=== PATIENT | male | born 1980 | race Caucasian/White ===

== ENCOUNTER 2016-07-31 08:39 | Emergency (ER) | payer OTHER ==
[2016-07-31 08:47] VITALS: BP 129/73
[2016-07-31] MEDS ORDERED: Aspirin Low Dose CHEW TAB* 81 MG PO ONE (09:39)
--- NOTE | 2016-07-31 09:44 | UC ---
Armando Rodriguez Benjamin, scribed for Papa Alexander MD on 07/31/16 at 0935 . Syncope/New Syncope HPI - HPI Summary HPI Summary: 35yo male who had a syncopal episode after a high intensity workout yesterday for a couple minutes. Took BP after the episode which was initially 85/54. First repeat was 99/60 then second repeat was back to pts baseline. Pt also felt woozy at night and reports left chest pressure that radiates to the arm, neck, and back yesterday night that is still present. Pt also reports mild SOB and states had been fasting for the past two days. Pt admits that he is under lots of stress lately. - History Of Current Complaint Chief Complaint: UCGeneralIllness Stated Complaint: FAINTED, PRESSURE/TINGLING Time Seen by Provider: 07/31/16 09:24 Hx Obtained From: Patient Onset/Duration: Sudden Onset, Lasting Minutes, Resolved Activity At Onset: Exertion - after a workout Timing: Intermittent Episode Lasting - minutes Context: Unwitnessed Associated Head Trauma: No Aggravating Factor(s): Nothing Alleviating Factor(s): Nothing Associated Signs And Symptoms: Positive: Chest Pain - left chest pressure, Shortness Of Breath - Allergies/Home Medications Allergies/Adverse Reactions: Allergies Allergy/AdvReac Type Severity Reaction Status Date / Time Amoxicillin Allergy Rash Verified 07/19/13 07:52 Dust Allergy Sneezing Uncoded 07/19/13 07:53 PMH/Surg Hx/FS Hx/Imm Hx GI/ History: Other - GI problems, not yet diagnosed. Other GI/ History: . - Surgical History Surgical History: Yes Surgery Procedure, Year, and Place: Scoliosis surgery at age 15 - Family History Known Family History: Positive: Cardiac Disease - lots of CADs in family - Social History Occupation: Employed Full-time Lives: With Family Alcohol Use: None Substance Use Type: None Smoking Status (MU): Never Smoked Tobacco - Immunization History Most Recent Influenza Vaccination: Season Review of Systems Constitutional: Negative Skin: Negative Eyes: Negative ENT: Negative Respiratory: Shortness Of Breath Cardiovascular: Chest Pain Gastrointestinal: Negative Genitourinary: Negative Motor: Negative Neurovascular: Negative Musculoskeletal: Negative Neurological: Other - syncopal episode Psychological: Other - stressed All Other Systems Reviewed And Are Negative: Yes Physical Exam Triage Information Reviewed: Yes Appearance: Well-Appearing, No Pain Distress, Obese Vital Signs: Initial Vital Signs Temp 98.4 F 07/31/16 08:42 Pulse 70 07/31/16 08:42 Resp 18 07/31/16 08:42 BP 129/73 07/31/16 08:42 Pulse Ox 100 07/31/16 08:42 Vital Signs Reviewed: Yes Eye Exam: Normal ENT: Positive: Normal ENT inspection, Pharynx normal, TMs normal Neck: Positive: Supple, Nontender Respiratory: Positive: Chest non-tender, Lungs clear, Normal breath sounds, No respiratory distress Bowel Sounds: Positive: Present Musculoskeletal: Positive: Strength Intact, ROM Intact Neurological: Positive: Alert, Muscle Tone Normal Psychological: Positive: Age Appropriate Behavior Skin Exam: Normal Skin: Negative: rashes Diagnostics - EKG Cardiac Rate: NL - 67bpm Cardiac Rhythm: Sinus: Normal - EKG taken at 0847. Ectopy: None Syncope Course/Dx - Course Course Of Treatment: Reviewed medication lists. TRANSFER TO [facility] [place] ED STABLE. - Differential Dx/Diagnosis Provider Diagnoses: SYNCOPE AND CHEST PAIN. - Physician Notification/Consults Discussed Patient Care With: Discussed with Sonja FAUSTIN (ED) for transfer to the ED. Discharge - Discharge Plan Condition: Stable Disposition: TRANS HIGHER LVL OF CARE FAC Referrals: No Primary Care Phys,NOPCP [Primary Care Provider] - The documentation as recorded by the Armando sosa Benjamin accurately reflects the service I personally performed and the decisions made by me, Papa Alexander MD.
== END 2016-07-31 10:13 | disposition short-term general hospital (02) ==
LOC: UCEAST 08:39
DX: R55 Syncope and collapse (principal); R07.9 Chest pain, unspecified; E66.9 Obesity, unspecified; Z88.3 Allergy status to other anti-infective agents
CPT/HCPCS: 93005; 99203; A9270-GY; G0463

== ENCOUNTER 2016-07-31 10:26 | Emergency (ER) | payer OTHER ==
[2016-07-31] MEDS ORDERED: Aspirin Low Dose CHEW TAB* 81 MG PO ONE (11:31)
[2016-07-31 11:50] LABS: Hematocrit 42 % (42-52); Mean Corpuscular HGB Conc 34 g/dl (31-36); Mean Corpuscular Hemoglobin 30 pg (27-31); Mean Corpuscular Volume 90 fL (80-94); Mean Platelet Volume 8 um3 (7.4-10.4); Red Blood Count 4.64 10^6/ul (4.0-5.4); Red Cell Distribution Width 13 % (10.5-15); White Blood Count 8.2 10^3/ul (3.5-10.8)
[2016-07-31 11:56] LABS: BUN/Creatinine Ratio 19.5 (8-20); EGFR African American 147.9 (>60); Globulin 3.3 g/dL (2-4); Potassium 4.1 mmol/L (3.5-5.0); Total Bilirubin 2.8 mg/dL (0.2-1.0); Total Protein 8.3 g/dL (6.4-8.9)
[2016-07-31 12:07] LABS: TSH (Thyroid Stimulating Horm) 2.24 mcIU/mL (0.34-5.60)
--- NOTE | 2016-07-31 12:35 | RAD ---
Indication: Chest pain, syncope. 2 views of the chest including dual energy PA views are reviewed. No prior study is available for comparison. No mediastinal shift is noted. Heart is of normal size without evidence of pericardial effusion. Lung bernabe demonstrate no pleural fluid, pneumonia or pneumothorax. IMPRESSION: NO ACTIVE CARDIOPULMONARY DISEASE IS NOTED.
--- NOTE | 2016-07-31 13:30 | ED ---
Jack Rodriguez Salem, scribed for Balwinder Romeo MD on 07/31/16 at 1205 . HPI Chest Pain - HPI Summary HPI Summary: Patient is a 35 y/o M who presents to the ED per EMS from the [facility] with CP since this morning. He states that he was doing a high intensity interval exercise last night (as he has been doing for 2 years now) when he felt lightheaded and had a near syncope/syncope episode. He also states that he had been fasting for two days prior to yesterday out of a desire to lose weight. He reports chills, diaphoresis, and high BP following his workout. Pt then felt 80% better, but still had chest congestion and pressure, as well as diffuse tenderness in chest muscle. He also reports shakes since this morning. Pt states that he has experienced similar sx once before. FHx significant for CAD. Pt also states that he lost over 100lbs on Contrave, but suspects that he has developed an eating disorder since. - History of Current Complaint Chief Complaint: EDChestPainROMI Time Seen by Provider: 07/31/16 10:49 Hx Obtained From: Patient, Family/Environmental Aide - Mother and daughter. Onset/Duration: Started Days Ago, Atraumatic, Still Present Timing: Constant Initial Severity: Moderate Current Severity: Moderate Pain Intensity: 2 Pain Scale Used: 0-10 Numeric Chest Pain Location: Diffuse Chest Pain Radiates: No Character: Pressure/Squeezing, Other: - Chest congestion. Aggravating Factor(s): Nothing Alleviating Factor(s): Nothing Associated Signs and Symptoms: Positive: Chest Pain, Lightheadedness, Diaphoresis, Other: - Chills, High BP. - Allergy/Home Medications Allergies/Adverse Reactions: Allergies Allergy/AdvReac Type Severity Reaction Status Date / Time Amoxicillin Allergy Rash Verified 07/31/16 10:59 Dust Allergy Sneezing Uncoded 07/19/13 07:53 PMH/Surg Hx/FS Hx/Imm Hx Endocrine/Hematology History: Denies: Hx Diabetes, Hx Thyroid Disease Cardiovascular History: Reports: Hx Hypertension - in the past , now no meds Respiratory History: Denies: Hx Asthma, Hx Chronic Obstructive Pulmonary Disease (COPD) GI History: Denies: Hx Ulcer - Surgical History Surgery Procedure, Year, and Place: Scoliosis surgery at age 15 Infectious Disease History: Denies: Hx Hepatitis, Hx Human Immunodeficiency Virus (HIV), History Other Infectious Disease, Traveled Outside the [place] in Last 30 Days - Family History Known Family History: Positive: Cardiac Disease, Hypertension - Social History Alcohol Use: None Substance Use Type: Reports: None Smoking Status (MU): Never Smoked Tobacco Review of Systems Positive: Chills, Skin Diaphoresis, Other - Shakes. Positive: Chest Pain - Congestion, pressure , Other - high BP. diffuse tenderness in chest muscle. Neurological: Other - Lightheadedness, syncope, All Other Systems Reviewed And Are Negative: Yes Physical Exam Triage Information Reviewed: Yes Vital Signs On Initial Exam: Initial Vitals Temp Pulse Resp BP Pulse Ox 98.8 F 68 16 128/81 98 07/31/16 10:41 07/31/16 10:41 07/31/16 10:41 07/31/16 10:41 07/31/16 10:41 Vital Signs Reviewed: Yes Appearance: Positive: Well-Appearing, No Pain Distress, Obese Skin: Positive: Warm, Skin Color Reflects Adequate Perfusion, Dry, Other - Healed scar on spine. Head/Face: Positive: Normal Head/Face Inspection Eyes: Positive: Normal Neck: Positive: Supple, Nontender Respiratory/Lung Sounds: Positive: Clear to Auscultation, Breath Sounds Present Cardiovascular: Positive: RRR Abdomen Description: Positive: Nontender, Soft Bowel Sounds: Positive: Present Musculoskeletal: Positive: Normal Neurological: Positive: Normal Psychiatric: Positive: Normal, Affect/Mood Appropriate Diagnostics - Vital Signs Vital Signs Temp Pulse Resp BP Pulse Ox 07/31/16 10:41 98.8 F 68 16 128/81 98 - Laboratory Lab Results: Lab Results 07/31/16 07/31/16 07/31/16 Range/Units 09:47 09:47 09:47 WBC 8.2 (3.5-10.8) 10^3/ul RBC 4.64 (4.0-5.4) 10^6/ul Hgb 14.0 (14.0-18.0) g/dl Hct 42 (42-52) % MCV 90 (80-94) fL MCH 30 (27-31) pg MCHC 34 (31-36) g/dl RDW 13 (10.5-15) % Plt Count 201 (150-450) 10^3/ul MPV 8 (7.4-10.4) um3 Neut % (Auto) 63.3 (38-83) % Lymph % (Auto) 29.0 (25-47) % [place] % (Auto) 5.9 (1-9) % Eos % (Auto) 1.5 (0-6) % Baso % (Auto) 0.3 (0-2) % Absolute Neuts (auto) 5.2 (1.5-7.7) 10^3/ul Absolute Lymphs (auto) 2.4 (1.0-4.8) 10^3/ul Absolute Monos (auto) 0.5 (0-0.8) 10^3/ul Absolute Eos (auto) 0.1 (0-0.6) 10^3/ul Absolute Basos (auto) 0 (0-0.2) 10^3/ul Absolute Nucleated RBC 0.01 10^3/ul Nucleated RBC % 0.1 INR (Anticoag Therapy) 0.99 (0.89-1.11) D-Dimer, Quantitative < 200 (Less Than 230) ng/mL Sodium 136 (133-145) mmol/L Potassium 4.1 (3.5-5.0) mmol/L Chloride 100 L (101-111) mmol/L Carbon Dioxide 29 (22-32) mmol/L Anion Gap 7 (2-11) mmol/L BUN 15 (6-24) mg/dL Creatinine 0.77 (0.67-1.17) mg/dL Est GFR ( Amer) 147.9 (>60) Est GFR (Non-Af Amer) 115.0 (>60) BUN/Creatinine Ratio 19.5 (8-20) Glucose 89 (70-100) mg/dL Lactic Acid (0.5-2.0) mmol/L Calcium 10.0 (8.6-10.3) mg/dL Total Bilirubin 2.80 H (0.2-1.0) mg/dL AST 41 H (13-39) U/L ALT 57 H (7-52) U/L Alkaline Phosphatase 66 (34-104) U/L Troponin I 0.00 (<0.04) ng/mL Total Protein 8.3 (6.4-8.9) g/dL Albumin 5.0 (3.2-5.2) g/dL Globulin 3.3 (2-4) g/dL Albumin/Globulin Ratio 1.5 (1-3) TSH 2.24 (0.34-5.60) mcIU/mL 07/31/16 Range/Units 12:32 WBC (3.5-10.8) 10^3/ul RBC (4.0-5.4) 10^6/ul Hgb (14.0-18.0) g/dl Hct (42-52) % MCV (80-94) fL MCH (27-31) pg MCHC (31-36) g/dl RDW (10.5-15) % Plt Count (150-450) 10^3/ul MPV (7.4-10.4) um3 Neut % (Auto) (38-83) % Lymph % (Auto) (25-47) % [place] % (Auto) (1-9) % Eos % (Auto) (0-6) % Baso % (Auto) (0-2) % Absolute Neuts (auto) (1.5-7.7) 10^3/ul Absolute Lymphs (auto) (1.0-4.8) 10^3/ul Absolute Monos (auto) (0-0.8) 10^3/ul Absolute Eos (auto) (0-0.6) 10^3/ul Absolute Basos (auto) (0-0.2) 10^3/ul Absolute Nucleated RBC 10^3/ul Nucleated RBC % INR (Anticoag Therapy) (0.89-1.11) D-Dimer, Quantitative (Less Than 230) ng/mL Sodium (133-145) mmol/L Potassium (3.5-5.0) mmol/L Chloride (101-111) mmol/L Carbon Dioxide (22-32) mmol/L Anion Gap (2-11) mmol/L BUN (6-24) mg/dL Creatinine (0.67-1.17) mg/dL Est GFR ( Amer) (>60) Est GFR (Non-Af Amer) (>60) BUN/Creatinine Ratio (8-20) Glucose (70-100) mg/dL Lactic Acid 0.7 (0.5-2.0) mmol/L Calcium (8.6-10.3) mg/dL Total Bilirubin (0.2-1.0) mg/dL AST (13-39) U/L ALT (7-52) U/L Alkaline Phosphatase (34-104) U/L Troponin I (<0.04) ng/mL Total Protein (6.4-8.9) g/dL Albumin (3.2-5.2) g/dL Globulin (2-4) g/dL Albumin/Globulin Ratio (1-3) TSH (0.34-5.60) mcIU/mL Result Diagrams: 07/31/16 09:47 07/31/16 09:47 Diagnostic Studies Comment: Trop 1: 0.00 Lab Statement: Any lab studies that have been ordered have been reviewed, and results considered in the medical decision making process. - Radiology CXR Radiology Interpretation Completed By: Radiologist - IMPRESSION: NO ACTIVE CARDIOPULMONARY DISEASE IS NOTED. - EKG 1040 EKG Interpretation: NSR @ 66 bpm. Chest Pain Course/Dx - Course Course Of Treatment: Mr. Woo presented with chest discomfort ever since he felt faint after exercising very strenuously last evening. His mother took his BP at that time and it was in the 80's and he was pale and sweaty. After he felt better, she rechecked his BP and it was normal. He has been fasting for 2 days as he does periodically. He was nauseated during the episode. His W/U was normal here and I think he was likely vagal from fasting and exercising. We discussed this and I recommended close F/U for further testing and weight loss education. - Diagnoses Provider Diagnoses: Vasovagal near-syncope Discharge - Discharge Plan Condition: Stable Disposition: HOME Patient Education Materials: Near Syncope (ED) Referrals: Silvestre STANLEY,Tim Painter [Primary Care Provider] - Additional Instructions: Follow up with primary care provider. The documentation as recorded by the Jack sosa Salem accurately reflects the service I personally performed and the decisions made by me, Balwinder Romeo MD.
[2016-07-31 13:44] VITALS: BP 137/65
== END 2016-07-31 13:43 | disposition home or self-care (01) ==
LOC: ED 10:26
DX: R55 Syncope and collapse (principal); R07.9 Chest pain, unspecified; R42 Dizziness and giddiness
CPT/HCPCS: 36415; 71020; 80053; 83605; 84443; 84484; 85025; 85379; 85610; 93005; 99283

== ENCOUNTER 2017-06-21 21:29 | Emergency (ER) | payer OTHER ==
[2017-06-21 21:34] VITALS: BP 170/98
--- NOTE | 2017-06-21 22:22 | ED ---
Lower Extremity - HPI Summary HPI Summary: 36-year-old male presents with left ankle injury today. He states he slipped off a ladder and missed a step. He is not sure which way his ankle turned. He has been able to ambulate. He states he has pain with ambulation. He states the pain moves around but is greatest in his anterior ankle. He denies any knee pain. He states he also struck his back but denies any back pain. He denies any numbness tingling. Denies any other injuries. He has not tried anything for her symptoms. Denies any other pain. Denies any previous injury to the area. 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 - History of Current Complaint Chief Complaint: EDExtremityLower Stated Complaint: FALL/LT ANKLE PAIN Time Seen by Provider: 06/21/17 21:37 Pain Intensity: 3 - Allergies/Home Medications Allergies/Adverse Reactions: Allergies Allergy/AdvReac Type Severity Reaction Status Date / Time amoxicillin Allergy Rash Verified 06/21/17 21:31 Dust Allergy Sneezing Uncoded 07/19/13 07:53 PMH/Surg Hx/FS Hx/Imm Hx Endocrine/Hematology History: Denies: Hx Diabetes, Hx Thyroid Disease Cardiovascular History: Reports: Hx Hypertension - in the past , now no meds Respiratory History: Denies: Hx Asthma, Hx Chronic Obstructive Pulmonary Disease (COPD) GI History: Denies: Hx Ulcer Musculoskeletal History: Reports: Hx Scoliosis - Surgical History Surgery Procedure, Year, and Place: Scoliosis surgery at age 15 Infectious Disease History: No Infectious Disease History: Denies: Hx Hepatitis, Hx Human Immunodeficiency Virus (HIV), History Other Infectious Disease, Traveled Outside the [place] in Last 30 Days - Family History Known Family History: Positive: Cardiac Disease, Hypertension - Social History Alcohol Use: None Substance Use Type: Reports: None Smoking Status (MU): Never Smoked Tobacco Review of Systems Negative: Fever Negative: Chest Pain Negative: Shortness Of Breath Positive: Myalgia - left ankle pain All Other Systems Reviewed And Are Negative: Yes Physical Exam Triage Information Reviewed: Yes Vital Signs On Initial Exam: Initial Vitals Temp Pulse Resp BP Pulse Ox 97.5 F 88 18 170/98 97 06/21/17 21:31 06/21/17 21:31 06/21/17 21:31 06/21/17 21:31 06/21/17 21:31 Vital Signs Reviewed: Yes Appearance: Positive: Well-Appearing Skin: Positive: Warm, Dry Head/Face: Positive: Normal Head/Face Inspection Eyes: Positive: Normal, Conjunctiva Clear Respiratory/Lung Sounds: Positive: Clear to Auscultation, Breath Sounds Present Cardiovascular: Positive: Normal, RRR Musculoskeletal: Positive: Strength/ROM Intact - Left ankle, Other - Nontender over left ankle, no edema, capillary refill is seconds, full range of motion with pain at full flexion, cap refill less than 2 seconds, sensation grossly intact Neurological: Positive: Normal Psychiatric: Positive: Normal Diagnostics - Vital Signs Vital Signs Temp Pulse Resp BP Pulse Ox 06/21/17 21:31 97.5 F 88 18 170/98 97 - Laboratory Lab Statement: Any lab studies that have been ordered have been reviewed, and results considered in the medical decision making process. - Radiology ankle Xray Interpretation: No Acute Changes Radiology Interpretation Completed By: Radiologist Lower Extremity Course/Dx - Course Course Of Treatment: 36-year-old male presents with left ankle injury today. He states he slipped off a ladder and missed a step. He is not sure which way his ankle turned. He has been able to ambulate. He states he has pain with ambulation. He states the pain moves around but is greatest in his anterior ankle. He denies any knee pain. He states he also struck his back but denies any back pain. He denies any numbness tingling. Denies any other injuries. He has not tried anything for her symptoms. Denies any other pain. Denies any previous injury to the area. On exam nontender left ankle. Neurovascular intact. X-ray read by me as normal. We'll treat his sprain with rice. Patient understands agrees with plan. - Diagnoses Differential Diagnosis/HQI/PQRI: Positive: Fracture (Closed), Sprain, Strain Provider Diagnoses: Left ankle injury Discharge - Sign-Out/Discharge Documenting (check all that apply): Discharge/Admit/Transfer - Discharge Plan Condition: Good Disposition: HOME Patient Education Materials: Ankle Sprain (ED) Referrals: Silvestre STANLEY,Tim Painter [Primary Care Provider] - Additional Instructions: Stay off ankle as much as possible Ice, elevate, keep in MAMIE as tolerated Ibuprofen or Tylenol every 6 hours for pain Follow up with primary if no improvement Return to ED if develop or any new or worsening symptoms - Billing Disposition and Condition Condition: GOOD Disposition: HOME
--- NOTE | 2017-06-22 07:27 | RAD ---
INDICATION: Left ankle injury. TECHNIQUE: 3 views of the left ankle were obtained. FINDINGS: Soft tissue swelling is noted along the anterolateral aspect of the ankle. No fracture is seen. Joint spaces appear maintained. IMPRESSION: SOFT TISSUE SWELLING, NO FRACTURE IS SEEN.
== END 2017-06-21 22:34 | disposition home or self-care (01) ==
LOC: ED 21:29
DX: S99.912A Unspecified injury of left ankle, initial encounter (principal); X50.1XXA Overexertion from prolonged static or awkward postures, initial encounter; Y93.89 Activity, other specified; Y92.9 Unspecified place or not applicable; I10 Essential (primary) hypertension; Z88.0 Allergy status to penicillin
CPT/HCPCS: 99281

== ENCOUNTER → 2018-07-19 19:57 | Emergency (ER) | payer OTHER ==
[~2018-07-19 19:57] MED LIST: Ketorolac INJ* 30 MG/ML 1 ML VIAL IM ONE; oxyCODONE/Acetamin 5/325 MG* TAB PO ONE
--- NOTE | 2018-07-19 20:07 | ED ---
Lower Extremity - HPI Summary HPI Summary: This patient is a 37 year old male presenting to [facility] with a chief complaint of right ankle pain after a fall. The patient was walking in his backyard when he stepped in mud, twisted the ankle and fell. He states he felt a pop. He rates his pain 4/10 in severity. - History of Current Complaint Stated Complaint: RT ANKLE INJURY PER EMS Time Seen by Provider: 07/19/18 20:01 Hx Obtained From: Patient Mechanism Of Injury: Fall From A Standing Position Onset of Pain: Minutes Onset/Duration: Minutes Severity Initially: Moderate Severity Currently: Moderate Pain Intensity: 4 Pain Scale Used: 0-10 Numeric Timing: Constant - Allergies/Home Medications Allergies/Adverse Reactions: Allergies Allergy/AdvReac Type Severity Reaction Status Date / Time amoxicillin Allergy Rash Verified 07/19/18 20:08 Dust Allergy Sneezing Uncoded 07/19/13 07:53 Home Medications: Home Medications Loratadine 10 mg PO DAILY PRN MDD 10mg 07/19/18 [History Confirmed 07/19/18] PMH/Surg Hx/FS Hx/Imm Hx Endocrine/Hematology History: Denies: Hx Diabetes, Hx Thyroid Disease Cardiovascular History: Reports: Hx Hypertension - in the past , now no meds Respiratory History: Denies: Hx Asthma, Hx Chronic Obstructive Pulmonary Disease (COPD) GI History: Denies: Hx Ulcer Musculoskeletal History: Reports: Hx Scoliosis - Surgical History Surgery Procedure, Year, and Place: Scoliosis surgery at age 15 Infectious Disease History: Denies: Hx Hepatitis, Hx Human Immunodeficiency Virus (HIV), History Other Infectious Disease - Family History Known Family History: Positive: Cardiac Disease, Hypertension - Social History Alcohol Use: None Substance Use Type: Reports: None Smoking Status (MU): Never Smoked Tobacco Review of Systems Negative: Fever Positive: Other - Right ankle pain All Other Systems Reviewed And Are Negative: Yes Physical Exam - Summary Physical Exam Summary: Appearance: The patient is well-nourished in no acute distress and in no acute pain. Skin: The skin is warm and dry and skin color reflects adequate perfusion. HEENT: The head is normocephalic and atraumatic. The pupils are equal and reactive. The conjunctivae are clear and without drainage. Nares are patent and without drainage. Mouth reveals moist mucous membranes and the throat is without erythema and exudate. The external ears are intact. The ear canals are patent and without drainage. The tympanic membranes are intact. Neck: The neck is supple with full range of motion and non-tender. There are no carotid bruits. There is no neck vein distension. Respiratory: Chest is non-tender. Lungs are clear to auscultation and breath sounds are symmetrical and equal. Cardiovascular: Heart is regular rate and rhythm. There is no murmur or rub auscultated. There is no peripheral edema and pulses are symmetrical and equal. Abdomen: The abdomen is soft and non-tender. There are normal bowel sounds heard in all four quadrants and there is no organomegaly palpated. Musculoskeletal: There is no back tenderness noted. Extremities are non-tender with full range of motion. There is good capillary refill. There is no peripheral edema or calf tenderness elicited. RIght ankle is tender and swollen over the medial malleolar. Good dorsal pedalis pulse. Neurological: Patient is alert and oriented to person, place and time. The patient has symmetrical motor strength in all four extremities. Cranial nerves are grossly intact. Deep tendon reflexes are symmetrical and equal in all four extremities. Psychiatric: The patient has an appropriate affect and does not exhibit any anxiety or depression. Triage Information Reviewed: Yes Vital Signs On Initial Exam: Temp Pulse Resp BP Pulse Ox 97.6 F 82 16 146/95 99 07/19/18 20:02 07/19/18 20:02 07/19/18 20:02 07/19/18 20:02 07/19/18 20:02 Vital Signs Reviewed: Yes Procedures - Splinting Right Lower Extremity Hand-Made Type: orthoglass Splint: posterior Pre-Proc Neuro Vasc Exam: normal Post-Proc Neuro Vasc Exam: normal Diagnostics - Laboratory Lab Statement: Any lab studies that have been ordered have been reviewed, and results considered in the medical decision making process. - Radiology Right ankle XR Radiology Interpretation Completed By: Radiologist Summary of Radiographic Findings: Distal fibula fracture, medial malleolar fracture. Pending offical radiologist report. Lower Extremity Course/Dx - Course Course Of Treatment: Mr. Woo Fell and fracutred his distal fibula and medial malleolus. He was neurologically intact and I placed him in a splint and crutches. - Diagnoses Provider Diagnoses: Fibula fracture, Malleolar fracture Discharge - Sign-Out/Discharge Documenting (check all that apply): Patient Departure - Discharge Patient Received Moderate/Deep Sedation with Procedure: No - Discharge Plan Condition: Stable Disposition: HOME Prescriptions: HYDROcodone/ACETAMIN 5-325 MG* [[place] 5-325 TAB*] 1 tab PO Q6H PRN #20 tab MDD 4 PRN Reason: Pain Patient Education Materials: Ankle Fracture (ED) Referrals: Silvestre STANLEY,Tim Painter [Medical Doctor] - Romeo Blanca MD [Medical Doctor] - Additional Instructions: Return to ED with any new or worsening symptoms. Follow up this week with Dr. Blanca. - Billing Disposition and Condition Condition: STABLE Disposition: Home - Attestation Statements Document Initiated by Arnulfoibdaniel: Yes Documenting Scribe: Tim Dunham Provider For Whom Omid is Documenting (Include Credential): Balwinder Romeo MD Scribe Attestation: Tim Rodriguez scralissaed for Balwinder Romeo MD on 07/20/18 at 1010. Scribe Documentation Reviewed: Yes Provider Attestation: The documentation as recorded by the Tim sosa accurately reflects the service I personally performed and the decisions made by Balwinder morton MD Status of Scribe Document: Viewed
--- OUTSIDE RECORDS SUMMARY | 2018-07-19 20:08 | XMS REPORT | Continuity of Care Document ---
:1980 External Reference #:[id number] Author Name Guru Garcia MD Address [address] [place] [address] Care Team Providers Name Role Phone Guru Garcia MD Care Team Information Product Marketer Unavailable Guru Garcia MD Primary Care Physician Unavailable Payers Date Identification Numbers Payment Provider Subscriber Policy Number: [id number] [employer] Albert Woo [employer] Number: [id number] [address] PayID: [id number] [place] [address] Advance Directives Description No Information Available Problems Description No Information Family History Date Family Member(s) Observation Comments Father Hypertension Father 81 Father NM Father Colon Cancer Mother 59 Mother No Current Problems First Sister 31 First Sister Colon Polyps Social History Type Date Description Comments Sex Unknown Occupation Information [employer] ETOH Use Denies alcohol use Tobacco Use Start: Unknown Nonsmoker Smoking Status Reviewed: 07/04/18 Nonsmoker Allergies, Adverse Reactions, Alerts Active Allergies Reaction Severity Comments Date Amoxicillin Hives 07/04/2018 Medications Active Medications SIG Qnty Indications Ordering Date Provider Cpap Supplies mask, tubing, 1units Guru Garg 07/04/2018 associated MD Radha supplies needed for use with cpap machine dx: g47.33 duration: lifetime Claritin use 1 by mouth q.d Unknown 10mg Capsules Coq10 1 tab qd Unknown Multivitamin 1 tab qd Unknown Immunizations CPT Code Status Date Vaccine Lot # [id number] Given 07/04/2018 Tdap Tetanus, W Pertussis [id number] Vital Signs Date Vital Result Comment 07/04/2018 10:04am BP Systolic 134 mmHg BP Diastolic 88 mmHg Heart Rate 78 /min Body Temperature 97.5 F Respiratory Rate 16 /min Height 66 inches 5'6" Weight 353.00 lb BMI (Body Mass Index) 57.0 kg/m2 Results Test Date Facility Test Result H/L Range Note Comp Metabolic Panel 06/27/2018 [facility] [place] Sodium 141 mmol/L N 135-145 Potassium 4.9 mmol/L N 3.5-5.0 Chloride 106 mmol/L N 101-111 Co2 Carbon Dioxide 28 mmol/L N 22-32 Anion Gap 7 mmol/L N 2-11 Glucose 105 mg/dL High 70-100 Blood Urea Nitrogen 15 mg/dL N 6-24 Creatinine 0.83 mg/dL N 0.67-1.17 BUN/Creatinine Ratio 18.1 N 8-20 Calcium 9.3 mg/dL N 8.6-10.3 Total Protein 7.6 g/dL N 6.4-8.9 Albumin 4.5 g/dL N 3.2-5.2 Globulin 3.1 g/dL N 2-4 Albumin/Globulin Ratio 1.5 N 1-3 Total Bilirubin 0.80 mg/dL N 0.2-1.0 Alkaline Phosphatase 64 U/L N 34-104 Alt 65 U/L High 7-52 Ast 35 U/L N 13-39 Egfr Non- 104.3 >60 Egfr 126.1 >60 1 Lipid Profile (Trig/Chol/HDL) 06/27/2018 [facility] [place] Triglycerides 111 mg/dL 2 Cholesterol 155 mg/dL 3 HDL Cholesterol 42.6 mg/dL 4 LDL Cholesterol 90 mg/dL 5 CBC Auto Diff 06/27/2018 [facility] [place] White Blood Count 10.0 10^3/uL N 3.5-10.8 Red Blood Count 4.30 10^6/uL N 4.18-5.48 Hemoglobin 13.1 g/dL Low 14.0-18.0 Hematocrit 38 % N 36-46 Mean Corpuscular Volume 88 fL N 80-94 Mean Corpuscular Hemoglobin 31 pg N 27-31 Mean Corpuscular HGB Conc 35 g/dL N 31-36 Red Cell Distribution Width 13 % N 10.5-15 Platelet Count 257 10^3/uL N 150-450 Mean Platelet Volume 7.6 fL N 7.4-10.4 Abs Neutrophils 6.5 10^3/uL N 1.5-7.7 Abs Lymphocytes 2.7 10^3/uL N 1.0-4.8 Abs Monocytes 0.5 10^3/uL N 0-0.8 Abs Eosinophils 0.3 10^3/uL N 0-0.6 Abs Basophils 0 10^3/uL N 0-0.2 Abs Nucleated RBC 0 10^3/uL Granulocyte % 65.0 % Lymphocyte % 26.9 % Monocyte % 5.1 % Eosinophil % 2.6 % Basophil % 0.4 % Nucleated Red Blood Cells % 0 1 Because ethnic data is not always readily available, this report includes an eGFR for both -Americans and non- Americans. The National Kidney Disease Education Program (NKDEP) does not endorse the use of the MDRD equation for patients that are not between the ages of 18 and 70, are , have extremes of body size, muscle mass, or nutritional status, or are non- or non-. According to the National Kidney Foundation, irrespective of diagnosis, the stage of the disease is based on the level of kidney function: Stage Description GFR(mL/min/1.73 m(2)) 1 Kidney damage with normal or decreased GFR 90 2 Kidney damage with mild decrease in GFR 60-89 3 Moderate decrease in GFR 30-59 4 Severe decrease in GFR 15-29 5 Kidney failure <15 (or dialysis) 2 Desirable: <150 Borderline High: 150-199 High: 200-499 Very High: >500 3 Desirable: <200 Borderline High: 200-239 High: >239 4 Low: <40 Desirable: 40-60 High: >60 5 Desirable: <100 Near Optimal: 100-129 Borderline High: 130-159 High: 160-189 Very High: >189 Procedures Description No Information Available Encounters Description No Information Available Plan of Treatment 07/04/2018 - Guru Garcia MDZ00.01 Encounter for general adult medical examination with abnormal whtlicpwU15.9 Obesity, nzlkqkwglqxY36.33 Obstructive sleep apnea (adult) (pediatric)AllNew Medication:Cpap Supplies - mask, tubing , associated supplies needed for use with cpap machine dx: g47.33 duration: lifetimeComments:Medication Management Patient Understands medications he's taking? Yes No Are there Barriersto Adherence? Yes No Has the patient been asked about herbal supplements and therapies, and OTC meds? Yes No
[2018-07-19 22:41] VITALS: BP 146/90
== END | disposition home or self-care (01) ==
LOC: ED 19:57
DX: S82.401A Unspecified fracture of shaft of right fibula, initial encounter for closed fracture (principal); S82.51XA Displaced fracture of medial malleolus of right tibia, initial encounter for closed fracture; X50.1XXA Overexertion from prolonged static or awkward postures, initial encounter; Y93.01 Activity, walking, marching and hiking; Y92.007 Garden or yard of unspecified non-institutional (private) residence as the place of occurrence of the external cause; I10 Essential (primary) hypertension; M41.9 Scoliosis, unspecified; Z88.3 Allergy status to other anti-infective agents
CPT/HCPCS: 96372; 99282; A9270-GY; J1885

== ENCOUNTER → 2018-07-28 06:44 | Day surgery (SDC) | payer OTHER ==
[~2018-07-28 06:44] MED LIST changes: +Acetaminophen IV 1GM/100ML * 100 ML ONE; +Buffered Lidocaine 1% SYRIN* 1 ML/SYRINGE INTRADERM ONE; +Bupivacaine 0.5%* 50 ML VIAL ONE; +Clindamycin 900 MG IVPREMIX(* 900 MG/50 ML SDV IV ONE; +Dexamethasone IV* 4 MG/ML 1 ML (4 MG) ONE; +DiMENhydriNATE IV* 50 MG/ML VIAL IV PUSH PRN; +Famotidine IV* 10 MG/ML 2 ML (20 mg) ONE; +HYDROcodone/ACETAMIN 5-325 MG* 1 TAB ONE; +HYDROcodone/ACETAMIN 5-325 MG* 1 TAB PO PRN; -Ketorolac INJ* 30 MG/ML 1 ML VIAL IM ONE; +Ketorolac INJ* 30 MG/ML 1 ML VIAL ONE; +Lactated Ringers 1000 ML Bag* 1,000 ML IV SCH; +Lidocaine 2% PF * 5 ML VIAL ONE; +Metoprolol Tartrate IV* 1 MG/ML 5 ML VIAL ONE; +Midazolam* 1 MG/ML 2 ML VIAL (2 MG) ONE; +Naloxone* 0.4 MG/ML 1 ML VIAL IV PRN; +Ondansetron INJ* 2 MG/ML VIAL IV PRN; +PROCHLORPERAZINE INJ 5 MG/ML 2 ML VIAL IV PRN; +Propofol* 10 MG/ML 20 ML BTL ONE; +diPHENhydraMINE IV* 50 MG/ML 1 ml VIAL (BENADRYL) IV PRN; +fentaNYL* 50 MCG/ML 2 ML VIAL (100 MCG VIAL) ONE; -oxyCODONE/Acetamin 5/325 MG* TAB PO ONE
[2018-07-28] MEDS: fentaNYL* 50 MCG/ML 2 ML VIAL (100 MCG VIAL) IV PRN ×3 (11:44→12:42)
--- NOTE | 2018-07-28 11:57 | OP ---
Operative Report - Blank - Operative Report Date of Operation: 07/28/18 Note: PATIENT: Albert Woo DATE OF : 1980 DATE OF SURGERY: 07/28/2018 SURGEON: Roderick Monae MD COATING SUPERVISOR: RAMIN Rosenthal, whos assistance was necessary for positioning, retraction, help with instrumentation, and closure. ANESTHESIOLOGIST: Dr. Khan PREOPERATIVE DIAGNOSIS: Right trimalleolar ankle fracture with disruption of the distal tibia-fibula syndesmosis. POSTOPERATIVE DIAGNOSIS: Right trimalleolar ankle fracture with disruption of the distal tibia-fibula syndesmosis. OPERATION: 1. Right trimalleolar ankle fracture open reduction and internal fixation of medial and lateral malleoli. 2. Right distal tibia-fibula syndesmosis open reduction and internal fixation. ANESTHESIA: General IMPLANTS: Arthrex plate and screws, Arthrex tightrope x2 TOURNIQUET TIME: Less than 2 hours with a well-padded calf tourniquet at 250mmHg SPECIMENS: none ESTIMATED BLOOD LOSS: minimal COMPLICATIONS: none STATUS: Stable from the operating room to the recovery room and then home. INDICATIONS FOR PROCEDURE: Albert sustained a right displaced trimalleolar ankle fracture. Both operative and non operative treatment alternatives were reviewed. Further, the nature and risks of surgery were reviewed in careful detail, in the office as well as the pre-operative holding area. Our discussions regarding the risks of surgery included, but were not limited to, infection, wound problems, nerve injury, neuroma, RSD, persistent symptoms, blood clot, nonunion, malunion, post- traumatic arthritis, hardware failure, failure of the surgery, and even the remote chance of catastrophic complication, including loss of limb. DESCRIPTION OF PROCEDURE: The patient was seen in the preoperative holding unit and informed written consent was obtained. The appropriate extremity was marked. The patient was then brought to the operating room and carefully positioned on the operating room table. Anesthesia was induced. All bony prominences were padded with great care. A chlorhexidine based pre-scrub was performed followed by a chloraprep prep and drape in standard sterile fashion. A surgical safety pause was then conducted in which we confirmed the appropriate patient, extremity, planned procedure, availability of equipment, indication and administration of prophylactic antibiotics, and DVT prophylaxis in the form of a compression boot on the non-surgical extremity. I began with Esmarch exsanguination of the limb and inflated the sterile calf tourniquet. I then utilized a laterally based incision overlying the distal fibula. Great care was taken to protect the superficial peroneal nerve, which was not visualized within the field of view. I dissected down through the soft tissue layers to expose the distal fibula. I then exposed the fracture. Fracture hematoma was removed. There was comminution and shortening of the fibula. It was very difficult to gain a reduction. I ended up placing a mini frag plate and 4 screws anteriorly along the fibula to hold it reduced and out to length. I then placed a plate laterally and then confirmed the reduction and the position of the plate fluoroscopically. I placed screws to hold the plate to the bone. The provisional fixation was removed and then I again confirmed fluoroscopically the appropriate position of the plate and screw lengths. At this point, I provisionally tacked the lateral incision closed while I turned my attention medially. I made an approximately 6cm incision over the medial malleolus. The fracture was exposed and hematoma was removed. Reduction of the medial malleolar fracture was obtained with a pointed reduction clamp. I placed guidewires for 4.0 mm cannulated screws. I confirmed the position of the guidewires fluoroscopically. I then overdrilled one of the wires and placed a partially threaded 4.0 mm cannulated screw. I then removed the guidewires and obtained fluoroscopic images. I then proceeded with open reduction and internal fixation of the distal tib- fib syndesmosis. We held the syndesmosis reduced and were pleased with syndesmotic reduction both clinically under direct visualization, as well as fluoroscopically. I utilized 2 Arthrex tight ropes through the lateral plate to hold the syndesmosis reduced. Fluoroscopic images were obtained demonstrating a good reduction of both the fractures and the syndesmosis. I also performed a posteriorly directed stress test and there was no posterior instability appreciated, so I elected to treat the posterior malleolar fracture in a closed manner. At this point, we irrigated copiously and then closed in layers meticulously utilizing 3-0 Monocryl for the deep and subdermal layers and hanna for the skin. A sterile dressing was then applied followed by a splint with the ankle in a neutral position. The patient was then awakened from anesthesia and transferred to the recovery room in stable condition. There were no complications. All needle and sponge counts were correct at the end of the case. ATTESTATION: I attest I was present and scrubbed and performed the critical portions of the procedure myself. POSTOPERATIVE PLAN: The postop plan is for [id number] for an anticipated duration of 6 weeks. Follow-up will be in 2 weeks. At that time we will likely transition into a [id number] aircast boot and switch from Eliquis to aspirin for DVT prophylaxis.
[2018-07-28 16:06] VITALS: BP 160/92
== END | disposition home or self-care (01) ==
LOC: OR 06:44
PROVIDERS: ATTEND Orthopaedic Surgery
DX: S82.851A Displaced trimalleolar fracture of right lower leg, initial encounter for closed fracture (principal); W01.0XXA Fall on same level from slipping, tripping and stumbling without subsequent striking against object, initial encounter; Y92.096 Garden or yard of other non-institutional residence as the place of occurrence of the external cause; I10 Essential (primary) hypertension; G47.33 Obstructive sleep apnea (adult) (pediatric); E66.01 Morbid (severe) obesity due to excess calories; Z68.43 Body mass index [BMI] 50.0-59.9, adult
CPT/HCPCS: 76000; C1713; J1100; J1885; J2250; J2704; J3010; J3490